=== PATIENT | male | born 1995 | race Two or more races ===

== ENCOUNTER 2024-01-18 01:08 | Emergency (ER) | payer MEDICAID, OTHER ==
[~2024-01-18] VITALS: Ht 170.2 cm; Wt 67.7 kg
[2024-01-18 01:22] VITALS: BP 116/85; PULSE 67; RESP 16; TEMP 97.9
[2024-01-18 03:09] VITALS: O2SAT 99
== END 2024-01-18 03:35 | disposition home or self-care (01) ==
LOC: ER 01:08 → EDBD 01:08 → ER 03:33
DX: Z00.00 Encounter for general adult medical examination without abnormal findings (principal); F17.210 Nicotine dependence, cigarettes, uncomplicated